=== PATIENT | male | born 1990 | race Caucasian/White ===

== ENCOUNTER 2016-11-12 16:22 | Emergency (ER) | payer SELFPAY ==
[~2016-11-12] VITALS: Ht 180.3 cm; Wt 89.5 kg
[~2016-11-12 16:22] MED LIST: LORTAB 5/500 501 TAB PO; NAPROSYN500 MG PO; NO HOME MEDICATIONS; PEN-VEE K500 MG PO
[2016-11-12 16:24] VITALS: BP 146/86; TEMP 98.3
[2016-11-12] MEDS ORDERED: MOTRIN 800800 MG/TAB PO (16:47)
[2016-11-12] MEDS ORDERED: AMOXICILLIN 50500 MG PO (16:47)
[2016-11-12 16:59] VITALS: PULSE 80
== END 2016-11-12 16:59 | disposition home or self-care (01) ==
LOC: COL.ER 16:22
DX: K08.89 Other specified disorders of teeth and supporting structures (principal)

== ENCOUNTER 2017-01-19 11:25 | Emergency (ER) | payer SELFPAY ==
[~2017-01-19] VITALS: Ht 182.9 cm; Wt 90.9 kg
[~2017-01-19 11:25] MED LIST changes: +AMOXICILLIN 50500 MG PO; +MOTRIN 800800 MG/TAB PO
[2017-01-19 11:30] VITALS: BP 146/78; PULSE 54; TEMP 98.1
[2017-01-19 13:11] LABS: BASO # 0.1 (0.0-0.2); BASO % 0.8 % (0.0-2.0); EOS # 0.3 (0.0-0.7); EOS % 4.4 % (0-4.0); GRAN # 3.8 (1.4-6.5); GRAN % 58.9 % (42.2-75.2); HEMATOCRIT 46.5 % (42.0-52.0); HEMOGLOBIN 15.8 g/dl (13.5-18.0); LYMPH # 1.9 (1.2-3.4); MEAN CELL VOLUME 92 fl (80.0-100.0); MEAN CORPUSCULAR HEMOGLOBIN 31 pg (27.0-31.0); MEAN CORPUSCULAR HGB CONC 34 g/dl (33.0-37.0); MEAN PLATELET VOLUME 9.3 fl (7.4-10.4); MONO # 0.4 (0.1-0.6); MONO % 5.6 % (1.7-9.3); PLATELET COUNT 256 K/mm3 (130-400); RED BLOOD COUNT 5.05 M/mm3 (4.20-5.60); REDCELL DISTRIBUTION WIDTH-CV 12.7 % (11.5-14.5); WHITE BLOOD COUNT 6.4 K/mm3 (4.8-10.8)
== END 2017-01-19 15:41 | disposition home or self-care (01) ==
LOC: COL.ER 11:25
PROVIDERS: Physician Assistant
DX: S76.212A Strain of adductor muscle, fascia and tendon of left thigh, initial encounter (principal); F17.210 Nicotine dependence, cigarettes, uncomplicated; X58.XXXA Exposure to other specified factors, initial encounter

== ENCOUNTER 2019-06-13 11:07 | Emergency (ER) | payer OTHER, BC ==
[~2019-06-13] VITALS: Ht 182.9 cm; Wt 90.9 kg
[2019-06-13 11:20] VITALS: BP 131/80; TEMP 98.7
[2019-06-13] MEDS ORDERED: LIDODERM 5% PATC1 EA TP (12:26)
[2019-06-13 12:45] VITALS: PULSE 67
== END 2019-06-13 12:45 | disposition home or self-care (01) ==
LOC: COL.ER 11:07
DX: M54.6 Pain in thoracic spine (principal); F17.210 Nicotine dependence, cigarettes, uncomplicated; Z98.890 Other specified postprocedural states; V49.00XA Driver injured in collision with unspecified motor vehicles in nontraffic accident, initial encounter

== ENCOUNTER 2022-08-21 11:07 | Emergency (ER) | payer SELFPAY ==
[~2022-08-21] VITALS: Ht 182.9 cm; Wt 90.9 kg
[~2022-08-21 11:07] MED LIST changes: +LIDODERM 5% PATC1 EA TP
[2022-08-21 11:15] VITALS: TEMP 98.1
[2022-08-21] MEDS ORDERED: AMOXICILLIN 50500 MG PO (13:27)
[2022-08-21 13:35] VITALS: BP 120/78; PULSE 89
== END 2022-08-21 18:34 | disposition home or self-care (01) ==
LOC: COL.ER 11:07
DX: J20.9 Acute bronchitis, unspecified (principal); Z28.310 Unvaccinated for COVID-19